=== PATIENT | male | born 1990 | race Caucasian/White ===

== ENCOUNTER 2018-09-26 18:29 | Emergency (ER) | payer SELFPAY ==
[2018-09-26] MEDS ORDERED: Lidocaine 1% 30 ML SDV INJECT ONE (18:55)
[2018-09-26 19:17] VITALS: BP 149/92
--- NOTE | 2018-09-26 21:20 | EDM.PDOC ---
ED HPI GENERAL MEDICAL PROBLEM - General Chief Complaint: Skin Complaint Time Seen by Provider: 09/26/18 18:30 Source of Information: Reports: Patient, RN Notes Reviewed History Limitations: Reports: No Limitations - History of Present Illness INITIAL COMMENTS - FREE TEXT/NARRATIVE: Pt. has been dealing with an ingrown R toenail for almost a month. He has been attempting to cut the nail on his own but has noticed swelling to the lateral aspect of the L great toe. Denies any fever or chills. Currently no discharge or erythema to the area. Pt. has a longstanding history of ingrown toenails. He states that he has had this nail removed previously by podiatry. Onset: Today Onset Date: 09/26/18 Location: Reports: Lower Extremity, Left Left Toe-Hailux Pain Score (Numeric/FACES): 10 - Related Data Allergies Allergy/AdvReac Type Severity Reaction Status Date / Time amoxicillin Allergy Cannot Verified 09/26/18 19:04 Remember Home Meds: Home Meds Cefdinir 300 mg BEDTIME PRN 09/26/18 [History] ClonazePAM [KlonoPIN] 0.5 mg BEDTIME PRN 09/26/18 [History] Levothyroxine [Synthroid] 100 mcg DAILY 09/26/18 [History] Losartan Potassium 50 mg DAILY 09/26/18 [History] Phentermine HCl 0.5 tab QAM 09/26/18 [History] hydroCHLOROthiazide [Hydrochlorothiazide] 25 mg DAILY 09/26/18 [History] Past Medical History Cardiovascular History: Reports: Hypertension Respiratory History: Reports: Asthma Musculoskeletal History: Reports: Other (See Below) Other Musculoskeletal History: Pt reports he has a bone spur in left leg. Psychiatric History: Reports: Depression - Past Surgical History HEENT Surgical History: Reports: Adenoidectomy, Myringotomy w Tube(s), Tonsillectomy Social & Family History - Family History Family Medical History: Noncontributory - Tobacco Use Smoking Status *Q: Never Smoker - Caffeine Use Caffeine Use: Reports: None - Recreational Drug Use Recreational Drug Use: No ED ROS GENERAL - Review of Systems Review Of Systems: ROS reveals no pertinent complaints other than HPI. ED EXAM, SKIN/RASH Exam: See Below Exam Limited By: No Limitations General Appearance: Alert, WD/WN, No Apparent Distress Extremities: Other (swelling with mild ulceration/serosanguinous discharge and granulation tissue to lateral aspect to L great toe. No significant erythema or warmth noted. No erythematous streak.) ED SKIN PROCEDURES - Additional/Other Procedure(s) Other (Free Text) Procedure(s): Removal of L great toenail. The toe was thoroughly cleansed with betadine and normal saline. A digital block was placed at the base of the L great toe. A total of 6 ml. of lidocaine was used. Pt. reported complete resolution of the discomfort. Toes was further cleansed with betadine and prepped and draped in the usual sterile fashion. Midline of nail was incised with a scissor. the nail was liberated from the matrix using an elevator. the two halves of the nail were removed with hemostats. Pt. tolerated procedure well. Surgicel was placed over the matrix as it was bleeding briskly. Pressure dressing consisting of 4x4, coban and tube gauze was used for a dressing. Course - Vital Signs Last Recorded V/S: Last Vital Signs Temp 36.4 C 09/26/18 18:30 Pulse 101 H 09/26/18 18:30 Resp 16 09/26/18 18:30 BP 149/92 H 09/26/18 18:30 Pulse Ox 95 09/26/18 18:30 - Orders/Labs/Meds Meds: Medications Discontinued Medications Generic Name Dose Route Start Last Admin Trade Name Gina PRN Reason Stop Dose Admin Lidocaine HCl 30 ml 09/26/18 18:55 Xylocaine-Mpf 1% INJECT 09/26/18 18:56 ONETIME ONE Departure - Departure Time of Disposition: 20:30 Disposition: Home, Self-Care 01 Condition: Good Clinical Impression: Ingrown toenail without infection - Discharge Information Instructions: Ingrown Toenail Referrals: Keily Koroma MD [Primary Care Provider] - Forms: ED Department Discharge Additional Instructions: Keep dressing on for 48 hours. Tylenol and ibuprofen for discomfort. Keep open to air as much as possible. Return to ER/Follow-up in clinic if redness, swelling, or discharge from the area. - Assessment/Plan Plan: Keep dressing on for 48 hours. Tylenol and ibuprofen for discomfort. Keep open to air as much as possible. Return to ER/Follow-up in clinic if redness, swelling, or discharge from the area.
== END 2018-09-26 20:20 | disposition home or self-care (01) ==
LOC: VM.ED 18:29
DX: L60.0 Ingrowing nail (principal); I10 Essential (primary) hypertension; J45.909 Unspecified asthma, uncomplicated; Z79.899 Other long term (current) drug therapy; Z88.1 Allergy status to other antibiotic agents
CPT/HCPCS: 11750; 99282; 99283; J2001; 11730

== ENCOUNTER 2018-12-20 15:59 | Emergency (ER) | payer MEDICAID, OTHER ==
[2018-12-20 18:20] VITALS: BP 149/84
[2018-12-20] MEDS ORDERED: Lidocaine 1% 30 ML SDV INJECT ONE (18:25)
[2018-12-20] MEDS ORDERED: Take Home: Acetaminophen/HYDROcodone 325-5 MG, 5 Tab Pack PO ONE (19:05)
[2018-12-20] MEDS ORDERED: Take Home: Cephalexin 500 MG Cap, 4 Cap Pack PO ONE (19:06)
--- NOTE | 2018-12-20 19:13 | CR ---
[id number] RAD/RAD Toes Right EXAM: RAD Toes Right CLINICAL DATA: TRAUMA COMPARISON: NO PREVIOUS SIMILAR EXAM IS AVAILABLE. FINDINGS: There appears to be a cortical irregularity of the distal aspect of the right fifth proximal phalanx. Clinical correlation would be helpful to know where the patient has focal pain.. IMPRESSION: SUSPECTED FRACTURE INVOLVING DISTAL END RIGHT FIFTH PROXIMAL PHALANX. Adrian Combs MD 12/20/18 0402 Thank you for allowing us to participate in the care of your patient.
--- NOTE | 2018-12-20 20:06 | EDM.PDOC ---
ED HPI GENERAL MEDICAL PROBLEM - General Chief Complaint: Lower Extremity Injury/Pain Stated Complaint: INGROWN TOENAIL Time Seen by Provider: 12/20/18 18:16 Source of Information: Reports: Patient History Limitations: Reports: No Limitations - History of Present Illness INITIAL COMMENTS - FREE TEXT/NARRATIVE: Pt. presents to ER with complaints of pain to R great toe. He states that he has been having symptoms of ingrown toenail and states that he stubbed his toe last week. He was seen in the clinic and told to put antibiotic ointment on the toe earlier today. He states that the pain is excruciating and he can no longer handle it. Denies any fever or chills. He does report some discharge for the medial aspect of the R great toe. Location: Reports: Lower Extremity, Right Quality: Reports: Ache, Throbbing Severity: Severe Right Pain Score (Numeric/FACES): 8 - Related Data Allergies Allergy/AdvReac Type Severity Reaction Status Date / Time amoxicillin Allergy Cannot Verified 12/20/18 18:14 Remember Home Meds: Home Meds ClonazePAM [KlonoPIN] 0.5 mg PO BEDTIME PRN 09/26/18 [History] Levothyroxine [Synthroid] 112 mcg PO DAILY 09/26/18 [History] Losartan Potassium 50 mg PO DAILY 09/26/18 [History] Phentermine HCl 0.5 tab PO QAM 09/26/18 [History] hydroCHLOROthiazide [Hydrochlorothiazide] 25 mg PO DAILY 09/26/18 [History] Gabapentin [Neurontin] 1 - 2 cap PO BEDTIME PRN 12/20/18 [History] Past Medical History Cardiovascular History: Reports: Hypertension Respiratory History: Reports: Asthma Musculoskeletal History: Reports: Other (See Below) Other Musculoskeletal History: Pt reports he has a bone spur in left leg. Psychiatric History: Reports: Depression Endocrine/Metabolic History: Reports: Hypothyroidism - Past Surgical History HEENT Surgical History: Reports: Adenoidectomy, Myringotomy w Tube(s), Tonsillectomy Social & Family History - Family History Family Medical History: Noncontributory - Tobacco Use Smoking Status *Q: Never Smoker - Caffeine Use Caffeine Use: Reports: None Review of Systems - Review of Systems Review Of Systems: See Below Musculoskeletal: Reports: Other (R great toe pain) ED EXAM, GENERAL - Physical Exam Exam: See Below Exam Limited By: No Limitations General Appearance: Alert, WD/WN, No Apparent Distress ED TRAUMA EXTREMITY PROCEDURES - Additional/Other Procedure(s) Other (Free Text) Procedure(s): Toe was cleansed with chlorhexidine. Digital block placed in R great toe base. Using sterile technique, the nail was removed in 2 sections. There was some erythema and discharge but no streaking up the foot. Course - Vital Signs Last Recorded V/S: Last Vital Signs Temp 37.1 C 12/20/18 18:16 Pulse 102 H 12/20/18 18:16 Resp 16 12/20/18 18:16 BP 149/84 H 12/20/18 18:16 Pulse Ox 96 12/20/18 18:16 - Orders/Labs/Meds Meds: Medications Discontinued Medications Generic Name Dose Route Start Last Admin Trade Name Gina PRN Reason Stop Dose Admin Hydrocodone Bitart/Acetaminophen 1 packet 12/20/18 19:05 12/20/18 19:20 Take Home: Acetam/Hydrocodon 325-5 Mg, 5 Pack PO 12/20/18 19:06 1 packet ONETIME ONE Administration Cephalexin 1 packet 12/20/18 19:06 12/20/18 19:20 Take Home: Cephalexin 500 Mg, 4 Cap Pack PO 12/20/18 19:07 1 packet ONETIME ONE Administration Lidocaine HCl 30 ml 12/20/18 18:25 12/20/18 18:32 Xylocaine-Mpf 1% INJECT 12/20/18 18:26 30 ml ONETIME ONE Administration - Radiology Interpretation Free Text/Narrative:: radiographs of R great toe negative for acute pathology Departure - Departure Time of Disposition: 08:04 Disposition: Home, Self-Care 01 Condition: Good Clinical Impression: Ingrown toenail with infection - Discharge Information Instructions: Ingrown Toenail Referrals: Keily Koroma MD [Primary Care Provider] - Forms: ED Department Discharge Additional Instructions: Change dressing once daily [place] 5/325mg 1 every 4-6 hours as needed for pain Keflex 500mg 4 times daily for 10 days Recheck in clinic in 10-14 days - Assessment/Plan Plan: Change dressing once daily [place] 5/325mg 1 every 4-6 hours as needed for pain Keflex 500mg 4 times daily for 10 days Recheck in clinic in 10-14 days
== END 2018-12-20 19:21 | disposition home or self-care (01) ==
LOC: VM.ED 15:59
DX: L60.0 Ingrowing nail (principal); L08.9 Local infection of the skin and subcutaneous tissue, unspecified; I10 Essential (primary) hypertension; E03.9 Hypothyroidism, unspecified; Z96.22 Myringotomy tube(s) status; Z98.890 Other specified postprocedural states; Z79.899 Other long term (current) drug therapy
CPT/HCPCS: 11750; 73660; 99283; A9270; J2001; 11730

== ENCOUNTER 2019-01-04 08:29 | Emergency (ER) | payer SELFPAY ==
[2019-01-04] MEDS ORDERED: cefTRIAXone 2 GM, Lidocaine 1% 4.2 ML IM ONE ×2 (08:59)
[2019-01-04 09:10] VITALS: BP 149/77
--- NOTE | 2019-01-04 21:33 | EDM.PDOC ---
ED HPI GENERAL MEDICAL PROBLEM - General Chief Complaint: Skin Complaint Stated Complaint: RT LEG Time Seen by Provider: 01/04/19 08:45 Source of Information: Reports: Patient History Limitations: Reports: No Limitations - History of Present Illness INITIAL COMMENTS - FREE TEXT/NARRATIVE: Pt. presents to ER with cellulitis to R lower extremity. Pt. states that it started about 4 days ago. He has a history or frequent cellulitis. He was seen in the ER about a week ago for an ingrown toenail and likely has some underlying PVD. He states that he felt chilled. No nausea, vomiting, or diarrhea. No chest pain or shortness of breath. He states that the erythema is isolated to his R mcintosh area. He states that he has taken 6 doses of keflex from an old prescription but that it has not helped. Onset Date: 12/31/18 Location: Reports: Lower Extremity, Right Quality: Reports: Burning Right Lower Leg Pain Score (Numeric/FACES): 10 - Related Data Allergies Allergy/AdvReac Type Severity Reaction Status Date / Time amoxicillin Allergy Cannot Verified 12/20/18 18:14 Remember Home Meds: Home Meds Levothyroxine [Synthroid] 112 mcg PO DAILY 09/26/18 [History] Losartan Potassium 50 mg PO DAILY 09/26/18 [History] Phentermine HCl 0.5 tab PO QAM 09/26/18 [History] hydroCHLOROthiazide [Hydrochlorothiazide] 25 mg PO DAILY 09/26/18 [History] Past Medical History Cardiovascular History: Reports: Hypertension Respiratory History: Reports: Asthma Musculoskeletal History: Reports: Other (See Below) Other Musculoskeletal History: Pt reports he has a bone spur in left leg. Hand surgery Psychiatric History: Reports: Depression Endocrine/Metabolic History: Reports: Hypothyroidism - Past Surgical History HEENT Surgical History: Reports: Adenoidectomy, Myringotomy w Tube(s), Tonsillectomy Social & Family History - Family History Family Medical History: Noncontributory - Tobacco Use Smoking Status *Q: Never Smoker - Caffeine Use Caffeine Use: Reports: None - Recreational Drug Use Recreational Drug Use: No ED ROS GENERAL - Review of Systems Review Of Systems: See Below Constitutional: Reports: Chills HEENT: Reports: No Symptoms Respiratory: Reports: No Symptoms Cardiovascular: Reports: No Symptoms Endocrine: Reports: No Symptoms GI/Abdominal: Reports: No Symptoms : Reports: No Symptoms Musculoskeletal: Reports: Leg Pain Skin: Reports: No Symptoms Neurological: Reports: No Symptoms Psychiatric: Reports: No Symptoms Hematologic/Lymphatic: Reports: No Symptoms Immunologic: Reports: No Symptoms ED EXAM, SKIN/RASH Exam: See Below Exam Limited By: No Limitations General Appearance: Alert, WD/WN, No Apparent Distress Extremities: Increased Warmth, Redness, Other (area of erythema noted to R lower leg. It was outlined in ink.) Neurological: Alert, Oriented, CN II-XII Intact, Normal Cognition, Normal Gait, Normal Reflexes, No Motor/Sensory Deficits Course - Vital Signs Last Recorded V/S: Last Vital Signs Temp 38.3 C H 01/04/19 08:35 Pulse 107 H 01/04/19 08:35 Resp 20 01/04/19 08:35 BP 149/77 H 01/04/19 08:35 Pulse Ox 95 01/04/19 08:35 - Orders/Labs/Meds Orders: Active Orders 24 hr Category Date Time Status CULTURE WOUND [RM] Stat Lab 01/04/19 08:58 Received Meds: Medications Discontinued Medications Generic Name Dose Route Start Last Admin Trade Name Davinq PRN Reason Stop Dose Admin Ceftriaxone Sodium 2 gm/ 0 gm 01/04/19 08:59 01/04/19 09:16 Lidocaine HCl 4.2 ml IM 01/04/19 09:00 2 inj ONETIME ONE Administration Departure - Departure Time of Disposition: 09:30 Disposition: Home, Self-Care 01 Condition: Good Clinical Impression: Cellulitis - Discharge Information Instructions: Cellulitis, Adult Referrals: Keily Koroma MD [Primary Care Provider] - Forms: ED Department Discharge Additional Instructions: Bactrim DS 1 twice daily for 10 days Tylenol and ibuprofen for fever/discomfort Return to ER if not gradually improving - Problem List Review Problem List Initiated/Reviewed/Updated: Yes - My Orders Last 24 Hours: My Active Orders 01/04/19 08:58 CULTURE WOUND [RM] Stat - Assessment/Plan Last 24 Hours: My Active Orders 01/04/19 08:58 CULTURE WOUND [RM] Stat Plan: Bactrim DS 1 twice daily for 10 days Tylenol and ibuprofen for fever/discomfort Return to ER if not gradually improving
== END 2019-01-04 09:25 | disposition home or self-care (01) ==
LOC: VM.ED 08:29
DX: L03.115 Cellulitis of right lower limb (principal); I10 Essential (primary) hypertension; E03.9 Hypothyroidism, unspecified; Z79.899 Other long term (current) drug therapy; Z96.22 Myringotomy tube(s) status; Z98.890 Other specified postprocedural states; Z88.1 Allergy status to other antibiotic agents
CPT/HCPCS: 87070; 87077; 96372; 99283; J0696; J2001

== ENCOUNTER 2020-12-11 07:11 | Emergency (ER) | payer BC, MEDICAID, SELFPAY ==
[2020-12-11] MEDS ORDERED: Ketorolac 30 MG/ML SDV IM ONE (07:28)
[2020-12-11] MEDS ORDERED: methylPREDNISolone Sodium Succinate 125 MG/2 ML SDV IM ONE (07:28)
--- NOTE | 2020-12-11 07:35 | EDM.PDOC ---
ED HPI GENERAL MEDICAL PROBLEM - General Chief Complaint: Back Pain or Injury Stated Complaint: BACK PAIN Time Seen by Provider: 12/11/20 07:15 Source of Information: Reports: Patient History Limitations: Reports: No Limitations - History of Present Illness INITIAL COMMENTS - FREE TEXT/NARRATIVE: Patient comes into the emergency department with back spasm. Patient states that he started feeling muscle tightness in his mid to lower back region yesterday at work and was trying to work through it he did take some [id number] anti-inflammatories and was trying to Stretch out while at work he states that he would put his feet up in the air and will try to do back stretches and stretches toes. He states when he got home things are feeling a little bit better for short period of time special after taking antiinflammatory. Patient states however when he woke up this morning he was in significant amount of pain and discomfort he had difficulty turning from side to side or bending forward. He did take an extensive amount of time to get up and get moving. Patient states that he can move in all directions and has no numbness or tingling however it is painful to do it. He also states it is painful to touch. Patient states that he does work on his feet for extended period time throughout the day and does do a lot of twisting lifting motions.Patient denies any recent injuries to his back. Patient also denies any tearing sensations.He states he can feel when the muscles are spasming and it is tender to touch over the areas. Patient has no other major concerns or complaints at the present time. Onset: Gradual Location: Reports: Back Quality: Reports: Throbbing, Other (spasm ) Severity: Moderate Improves with: Reports: Rest Worsens with: Reports: Movement Context: Reports: Other Associated Symptoms: Reports: No Other Symptoms - Related Data Allergies Allergy/AdvReac Type Severity Reaction Status Date / Time amoxicillin Allergy Rash Verified 12/11/20 07:29 Home Meds: Home Meds Levothyroxine [Synthroid] 112 mcg PO DAILY 09/26/18 [History] hydroCHLOROthiazide [Hydrochlorothiazide] 25 mg PO DAILY 09/26/18 [History] Cyclobenzaprine [Flexeril] 10 mg PO TID PRN #15 tab 12/11/20 [Rx] Ketorolac [Toradol] 10 mg PO TID PRN #15 tab 12/11/20 [Rx] metFORMIN HCl [Metformin ER Gastric] 500 mg PO DAILY 12/11/20 [History] predniSONE [Prednisone] 20 mg PO DAILY #5 tablet 12/11/20 [Rx] Past Medical History Cardiovascular History: Reports: Hypertension Respiratory History: Reports: Asthma Musculoskeletal History: Reports: Other (See Below) Other Musculoskeletal History: Pt reports he has a bone spur in left leg. Hand surgery Psychiatric History: Reports: Depression Endocrine/Metabolic History: Reports: Hypothyroidism - Past Surgical History HEENT Surgical History: Reports: Adenoidectomy, Myringotomy w Tube(s), Tonsillectomy Social & Family History - Family History Family Medical History: No Pertinent Family History - Caffeine Use Caffeine Use: Reports: None ED ROS GENERAL - Review of Systems Review Of Systems: Comprehensive ROS is negative, except as noted in HPI. Constitutional: Reports: No Symptoms HEENT: Reports: No Symptoms Respiratory: Reports: No Symptoms Cardiovascular: Reports: No Symptoms Endocrine: Reports: No Symptoms GI/Abdominal: Reports: No Symptoms : Reports: No Symptoms Musculoskeletal: Reports: No Symptoms Skin: Reports: No Symptoms Neurological: Reports: No Symptoms Psychiatric: Reports: No Symptoms Hematologic/Lymphatic: Reports: No Symptoms Immunologic: Reports: No Symptoms ED EXAM, GENERAL - Physical Exam Exam: See Below Exam Limited By: No Limitations General Appearance: Alert, WD/WN, No Apparent Distress Head: Atraumatic, Normocephalic Neck: Normal Inspection, Supple, Non-Tender, Full Range of Motion Respiratory/Chest: No Respiratory Distress, Lungs Clear, Normal Breath Sounds, No Accessory Muscle Use, Chest Non-Tender Cardiovascular: Normal Peripheral Pulses, Regular Rate, Rhythm, No Edema GI/Abdominal: Normal Bowel Sounds, Soft, Non-Tender, No Mass Back Exam: Normal Inspection, Full Range of Motion (very painful to complete but can ), Muscle Spasm Extremities: Normal Inspection, Normal Range of Motion, Non-Tender, Normal Capillary Refill Neurological: Alert, Oriented, Normal Cognition, Normal Gait Psychiatric: Normal Affect, Normal Mood Skin Exam: Warm, Dry, Intact, Normal Color Departure - Departure Time of Disposition: 07:45 Disposition: Home, Self-Care 01 Condition: Good Clinical Impression: Muscle strain, Back muscle spasm Back pain Qualifiers: Back pain location: low back pain Chronicity: acute Back pain laterality: bilateral Sciatica presence: without sciatica Qualified Code(s): M54.5 - Low back pain - Discharge Information *PRESCRIPTION DRUG MONITORING PROGRAM REVIEWED*: Not Applicable *COPY OF PRESCRIPTION DRUG MONITORING REPORT IN PATIENT NANDO: Not Applicable Instructions: Muscle Cramps and Spasms, [id number], Cyclobenzaprine tablets, Ketorolac Oral Tablets, Prednisone tablets Forms: ED Department Discharge, ED Return to Work/School Form Additional Instructions: 1. rest 2. Can take Toradol as needed for pain 3. Can take Flexeril for muscle spasms 4. Take prednisone daily for the next 5 days 5. Continue all at home medications 6. Activity and diet as tolerated 7. Can take over the counter Tylenol for any pain or discomfort 8. use ice or heat for 20 minutes at a time 3-4 times a day 9. Follow up with PCP if symptoms continue, return, or progress 10. Call with any questions or concerns The medication you have been prescribed today has a warning it may inhibit your response or action time. It is advised you do not drive or operate any device while using this medications. It is also advised this medication can not be shared or given to other individuals for it is against the law and one may be punished in the court of law. - Assessment/Plan Assessment:: 1. back pain Plan: 1. Ice Applied to the affected area 2. Medication offered to the patient- Toradol IM given 3. Solu-medol 125mg given in the ER. 4. Scripts for toradol, prednisone, and flexeril script sent with the patient 5. Education regarding splinting, activity, [id number] medications, and follow-up care provided. 6. All questions and concerns addressed with the patient prior to discharge
[2020-12-11 08:06] VITALS: BP 134/72; PULSE 72
== END 2020-12-11 07:50 | disposition home or self-care (01) ==
LOC: VM.ED 07:11
DX: S39.012A Strain of muscle, fascia and tendon of lower back, initial encounter (principal); S29.012A Strain of muscle and tendon of back wall of thorax, initial encounter; J45.909 Unspecified asthma, uncomplicated; I10 Essential (primary) hypertension; E03.9 Hypothyroidism, unspecified; Z79.899 Other long term (current) drug therapy; Z88.0 Allergy status to penicillin; X50.9XXA Other and unspecified overexertion or strenuous movements or postures, initial encounter; Y99.0 Civilian activity done for income or pay
CPT/HCPCS: 96372; 99283; J1885; J2930

== ENCOUNTER 2023-06-09 11:42 | Emergency (ER) | payer MEDICAID, OTHER ==
[2023-06-09 11:55] VITALS: BP 143/74; PULSE 64
== END 2023-06-09 11:59 | disposition home or self-care (01) ==
LOC: VM.ED 11:42
DX: H60.92 Unspecified otitis externa, left ear (principal); I10 Essential (primary) hypertension; J45.909 Unspecified asthma, uncomplicated; E03.9 Hypothyroidism, unspecified; E66.9 Obesity, unspecified; Z79.899 Other long term (current) drug therapy
CPT/HCPCS: 99282; 99283